=== PATIENT | female | born 1960 | race Asian ===

== ENCOUNTER 2017-12-26 22:44 | Emergency (ER) | payer OTHER ==
[~2017-12-26] VITALS: Ht 152.4 cm; Wt 72.6 kg
[~2017-12-26 22:44] MED LIST: AMLODIPINE BESYLATE PO; ASCO500T18 PO; BENZ1TAB43 PO; BENZTROPINE2 MG PO; DIVA250T2 PO; DIVA500T2 PO; DONE5TAB PO; EASY-LAX100 MG PO; ENSURE PO; FERR325T5 PO; FERROUS SULF325 MG PO; FIBERCON625 MG PO; GERI-MUCIL68 % PO; HALO10TA5 PO; HALO50IN4 IM; HALO5TAB10 PO; MAPAP325 MG PO; MEMANTINE HCL10 MG PO; OLANZAPINE10 M2 PO; OLANZAPINE20 M1 PO; OXCARBAZEPIN300 MG PO; OXYC5TAB53 PO; SEROQUEL300 MG PO; THERA-M PO; TRAZODONE; TRAZODONE300 MG PO; TRILEPTAL300 MG PO; VITAMIN D32000 UNIT PO; WATEINJ6 INJ; ZINC220 MG PO; ZIPR20IN IM; ZIPRASIDONE HCL80 MG PO; ZYPREXA ZYDI10 MG PO; [UNRECOGNIZED DRUG - OTHER] PO
[2017-12-26 23:41] LABS: PLATELET COUNT 105 K/uL (152-353)
[2017-12-26 23:48] LABS: POTASSIUM 4.3 mmol/L (3.6-5.2)
[2017-12-27 00:08] VITALS: BP 182/87; TEMP 98
[2017-12-27] MEDS ORDERED: OLANZAPINE10 M2 PO (04:29)
[2017-12-27] MEDS ORDERED: TRILEPTAL300 MG OR (04:42)
[2017-12-27] MEDS ORDERED: ONDA4TAB3 PO (04:45)
[2017-12-27] MEDS ORDERED: GERI-LANTA PO (04:47)
[2017-12-27] MEDS ORDERED: OXYC5TAB53 PO (04:48)
[2017-12-27] MEDS ORDERED: FERROUS SULF325 M1 PO (04:50)
[2017-12-27] MEDS ORDERED: STOOL SOFTNR100 MG PO (04:54)
[2017-12-27] MEDS ORDERED: MEMANTINE HCL10 MG PO (05:02)
[2017-12-27] MEDS ORDERED: BENZ1TAB43 PO (05:04)
[2017-12-27] MEDS ORDERED: DIVA500T2 PO (05:09)
[2017-12-27] MEDS ORDERED: AMLODIPINE BESYLATE PO (05:11)
[2017-12-27] MEDS ORDERED: FIBER THERAP0.52 GM PO (05:14)
[2017-12-27] MEDS ORDERED: ACID REDUCER150 M1 PO (05:16)
[2017-12-27] MEDS ORDERED: MULTIVITAMI1 PO (05:33)
[2017-12-27] MEDS ORDERED: DONE5TAB PO (05:35)
[2017-12-27] MEDS ORDERED: HALO50IN4 IM (05:41)
[2017-12-27] MEDS ORDERED: HYDROCERIN EX (05:50)
[2017-12-27] MEDS ORDERED: [UNRECOGNIZED DRUG - OTHER] EX (05:55)
[2018-01-02] MEDS ORDERED: ATOR20TA2 PO (10:38)
[2018-01-02] MEDS ORDERED: TRILEPTAL300 MG OR (10:38)
[2018-01-02] MEDS ORDERED: OLANZAPINE10 M2 PO (10:39)
[2018-01-02] MEDS ORDERED: HALO5TAB10 PO (10:39)
[2018-01-02] MEDS ORDERED: HALO50IN4 IM (10:39)
[2018-01-02] MEDS ORDERED: TRAZ50TA36 PO (10:39)
[2018-01-02] MEDS ORDERED: QUET100T2 PO (10:39)
[2018-02-05] MEDS ORDERED: GERI-LANTA PO (04:37)
[2018-02-05] MEDS ORDERED: MILK OF MAGNESIA SUS PO (04:39)
[2018-02-13] MEDS ORDERED: DIVALPROEX500 MG PO (11:39)
[2018-02-13] MEDS ORDERED: DIVA500T2 PO (11:39)
[2018-02-13] MEDS ORDERED: SYMMETREL 100MG CAP PO (11:39)
[2018-02-13] MEDS ORDERED: QUET300T PO (11:39)
[2018-05-21] MEDS ORDERED: HALO50IN4 IM (09:45)
[2018-05-27] MEDS ORDERED: OLANZAPINE10 MG PO (10:10)
[2018-05-27] MEDS ORDERED: MAGICMOUTH PO (10:10)
[2018-05-27] MEDS ORDERED: MEGE40TA32 PO (10:10)
[2018-05-27] MEDS ORDERED: MEMA10TA2 PO (10:10)
[2018-05-27] MEDS ORDERED: AMANTADINE100 MG PO (10:10)
[2018-05-27] MEDS ORDERED: GERI-LANTA PO (10:12)
[2018-05-27] MEDS ORDERED: AMLODIPINE BESYLATE PO (10:13)
[2018-05-27] MEDS ORDERED: DONE5TAB PO (10:14)
[2018-05-27] MEDS ORDERED: STOOL SOFTNR100 MG PO (10:14)
[2018-05-27] MEDS ORDERED: MEMANTINE HCL10 MG PO (10:15)
[2018-05-27] MEDS ORDERED: HALO50IN4 IM (10:15)
[2018-06-04] MEDS ORDERED: QUET300T PO (00:47)
[2018-06-04] MEDS ORDERED: TRAZODONE HYDRO50 MG PO (00:48)
[2018-06-04] MEDS ORDERED: OXYC5TAB53 PO (00:49)
[2018-06-04] MEDS ORDERED: TRILEPTAL300 MG PO (00:50)
[2018-06-09] MEDS ORDERED: HALO50IN4 IM (21:38)
[2018-06-09] MEDS ORDERED: DICL1GEL2 TOP (21:39)
[2018-06-09] MEDS ORDERED: ZIPR20CA PO (21:40)
[2018-06-09] MEDS ORDERED: PANTOPRAZOLE 40MG TA PO (21:40)
== END 2017-12-27 00:08 | disposition other institution (70) ==
LOC: ED 22:44
PROVIDERS: Emergency Medicine
DX: Z04.6 Encounter for general psychiatric examination, requested by authority (principal); F28 Other psychotic disorder not due to a substance or known physiological condition
CPT/HCPCS: 36415; 80053; 80329; 81000; 85027; 93005; 99285

== ENCOUNTER 2018-04-27 16:00 | Emergency (ER) | payer OTHER ==
[~2018-04-27] VITALS: Ht 162.6 cm; Wt 74.4 kg
[~2018-04-27 16:00] MED LIST changes: +ACID REDUCER150 M1 PO; +ATOR20TA2 PO; +DIVALPROEX500 MG PO; +FERROUS SULF325 M1 PO; +FIBER THERAP0.52 GM PO; +GERI-LANTA PO; +HYDROCERIN EX; +MILK OF MAGNESIA SUS PO; +MULTIVITAMI1 PO; +ONDA4TAB3 PO; +QUET100T2 PO; +QUET300T PO; +STOOL SOFTNR100 MG PO; +SYMMETREL 100MG CAP PO; +TRAZ50TA36 PO; +TRILEPTAL300 MG OR; +[UNRECOGNIZED DRUG - OTHER] EX
[2018-04-27 16:10] VITALS: TEMP 97.2
[2018-04-27 16:29] LABS: PLATELET COUNT 56 K/uL (152-353)
[2018-04-27 16:44] LABS: POTASSIUM 4.3 mmol/L (3.6-5.2)
[2018-04-27 18:05] VITALS: BP 120/78
[2018-04-27] MEDS ORDERED: AMANTADINE100 M1 PO (22:51)
[2018-04-27] MEDS ORDERED: TRILEPTAL300 MG PO (22:53)
== END 2018-04-27 18:20 | disposition other institution (70) ==
LOC: ED 16:00
PROVIDERS: Family Medicine
DX: F25.8 Other schizoaffective disorders (principal); R46.89 Other symptoms and signs involving appearance and behavior; Z04.6 Encounter for general psychiatric examination, requested by authority
CPT/HCPCS: 80053; 81000; 85027; 93005; 99285

== ENCOUNTER 2018-05-08 10:15 | Inpatient (IN) | payer OTHER ==
[2018-05-08] VITALS (25 sets, daily range): BP systolic 80–114; BP diastolic 44–95; TEMP 97–98.9; Ht 152.4 cm; Wt 67.2 kg
[~2018-05-08] VITALS: Ht 152.4 cm; Wt 67.2 kg
[~2018-05-08 10:15] MED LIST changes: +AMANTADINE100 M1 PO
--- NOTE | 2018-05-08 10:15 | NUR ---
ADMITTED TO ICU 58 YEAR OLD FEMALE ADMITTED TO DR ERICKSON SERVICES DX PNEUMONIA. R/O BOWEL OBST. PT VERY DROWSEY, NOT TALKING, MOANS WHEN MOVED. NO RESPONSE TO VERBAL STIMULI. PT UP IN BED. CHECKED NG LEAKING. CHECKED PLACEMENT TO LOW WALL SUCTION. RETURN DARK DRAINAGE FOUL SMELL. HOB UP. RECIEVED REPORT FROM [facility]. SENT ORDERS TO ADMISSION TO GET PT IN SYSTEM. KIANA GAMBOA PERSONNEL SCHEDULER HERE.
--- NOTE | 2018-05-08 11:00 | NUR ---
PT ON MONITOR NOTED ST HR 130 RECIEVED LABS LOW BLOOD SUGAR REPEAT FINGER STICK BLOOD SUGAR 40. RECIEVED ORDERS. CHECKED IV NO GOOD WILL NOT FLUSH. ATTEMPT TO RESTART IV UNSUCCESSFUL. ELIAS VAZQUEZ HERE STARTED 18 GA RIGHT EJ X 1 STICK , PRIOR ATTEMPT BY KIANA HALLP UNSUCCESSFUL. IF FLUID STARTED.
--- NOTE | 2018-05-08 11:15 | NUR ---
CHANGED IV FLUIDS TO 1/2 NS ELEVATED SODIUM LEVEL. PT RECIEVED 2 AMPS D50 BY CARRIER DONAVON RN ORDERED. DR ERICKSON HERE AT BEDSIDE. WILL BOLUS 1 LITER OF FLUID ORDERED. NG TO SUCTION OFF. PT TO GO FOR CT SCAN ABD WITH ORAL CONTRAST.
--- NOTE | 2018-05-08 12:00 | NUR ---
HOB UP PT RECIEVED BOLUS ORDERED STARTED ON IV ANTIBOTICS ORDERED. RECIEVED ORAL X RAY CONTRAST VIA NG PER MARILOU FLORES RN. PT KATHLEEN WELL. PT SHAKING AT TIME HR SLOWLY COMING DOWN. MOANING. AT TIMES. CHECKED BLOOD SUHAR X 2 315 AND 304 WILL CONTINUE TO MONITOR.
[2018-05-08 12:52] LABS: POTASSIUM 3.3 mmol/L (3.6-5.2)
--- NOTE | 2018-05-08 13:40 | NUR ---
LAB HERE REDRAW BLOOD RECIEVED DIFFERENT RESULTS WITH H&H. LAB REPEAT. LEE TO GO TO X RAY AT [address] ABD.
--- NOTE | 2018-05-08 14:15 | NUR ---
PATIENT TO CT VIA BED WITH O2 AND MONITOR.
--- NOTE | 2018-05-08 14:35 | NUR ---
PATIENT BACK TO ROOM ASSISTED. IV FLUIDS RESUME. ON MONITOR PT MOVING ABOUT A LITTLE MORE TRYING TO ROUSE UP SIT UP. GARBLED SPEECH. A LITTLE RESTLESS. ASSISTED WITH POSITION CHANGE.
[2018-05-08 14:53] LABS: PLATELET COUNT 107 K/uL (152-353)
--- NOTE | 2018-05-08 15:15 | NUR ---
DR BA HERE CHECKED CT RESULTS. NO SURGERY NEEDED. PT HAS CONSTIPATION. INSERTED TRIPLE LUMEN LINE LEFT CHEST WALL X1 STICK. GOOD BLOOD RETURN. NG BACK TO INTERMITTENT SUCTION DRAINING SMALL AMOUT DARK EMESIS. ORDERED CHEST X RAY.
--- NOTE | 2018-05-08 16:30 | NUR ---
ON PHONE WITH DR BA, RECIEVED OK TO USE CENTRAL LINE. PATIENT HAS BEEN RESTING QUIETLY. RECIEVED BREATHING TX HOB UP SAT 100% RESP RATE 27 CO2 MONITOR 27 LOW PT MOUTH BREATHING.
--- NOTE | 2018-05-08 16:50 | NUR ---
CHECKED BLOOD SUGAR [address] ERICKSON, REP[ORT PATIENT PROGRESS AND BLOOD SUGAR. RECIEVED NEW ORDERS.
--- NOTE | 2018-05-08 17:38 | NUR ---
RECIEVED MEDS ORDERED. CHANGED IV FLUIDS TO D51/2 NS AT 100 ML HR. WILL CONTINUE TO MONITOR. PT BEGAN COUGHING NON PRODUCTIVE HOB UP SAT 98%.
--- NOTE | 2018-05-08 18:26 | NUR ---
CHECKED BLOOD SUGAR 115. IV FLUIDS INFUSING WITHOUT DIFFICULTY. PT REPOSITIONED. FALLS INTO DEEP SLEEP. RESP RATE DROPS DOWN TO AROUND 12. CONTINUES TO SAT 99-100% WITH 3 L NC. APPLIED SCD'S TO LOWER EXT. FEET UP ON PILLOW HEELS OFF BED. NOTED BILAT STAGE 1 DECUB TO HEELS QUARTER SIZE.
--- NOTE | 2018-05-08 23:32 | NUR ---
SOAP SUDS ENEMA WAS ADMINISTERED. PT IS POSTIONED ON HER LEFT SIDE.
[2018-05-09] VITALS (25 sets, daily range): BP systolic 97–188; BP diastolic 47–93; TEMP 97.2–99.8
--- NOTE | 2018-05-09 00:37 | NUR ---
MINIMAL RESULTS FROM SSE. PT MORE ALERT AND TALKING TO STAFF. LINENS WERE CHANGED AND PT WAS PADDED WITH RJ NAPIER. POSITIONED PT ON HER LEFT SIDE. NG INTACT WITH GREEN LIQUID EMESIS DRAINING INTO SUCTION CONTAINER. HR IS 108. O2 SAT IS 99. SR UP.
--- NOTE | 2018-05-09 05:09 | NUR ---
PT RECEIVED RESP TREATMENT. LUNGS AUSCULTATED.
[2018-05-09 05:41] LABS: PLATELET COUNT 110 K/uL (152-353)
--- NOTE | 2018-05-09 05:49 | NUR ---
BLOOD WAS DRAWN AND SENT TO LAB.
--- NOTE | 2018-05-09 08:15 | NUR ---
DR GUTIERREZ AND AMELIA OLEA,TABLE WORKER IN TO SEE PT, NEW ORDERS WRITTEN AND CARRIED OUT
--- NOTE | 2018-05-09 10:03 | NUR ---
TURNED OFF SUCTION AND DISCONNECTED TO GIVE MEDICATION, WILL RESUME IN 30 MIN IF NO RESIDUAL, PT IN NAD AT THIS TIME
--- NOTE | 2018-05-09 11:00 | NUR ---
SMALL AMOUNT OF SPUTUM OBTAINED AFTER ENCOURAGING PT TO TAKE A DEEP BREATH AND COUGH. SPUTUM THICK AND LIGHT GREEN COLOR
--- NOTE | 2018-05-09 14:00 | NUR ---
SOAP SUDS ENEMA GIVEN PER RECTUM, SMALL AMOUNT OF SOLID STOOL OBTAINED, DIGITAL FECAL REMOVAL ATTEMPTED, MODERATE AMOUNT OF SOLID BROWN STOOL OBTAINED, PT TOLERATED WELL, NAD NOTED
--- NOTE | 2018-05-09 19:45 | NUR ---
PT AWAKE AND TALKING SOME WITH DEPUTY SHERIFF CHIEF, DENIES ANY PAIN OR PROBLEMS, NO DISTRESS NOTED, RESP RATE NONLABORED, O2 AT 2LPM VIA NC WITH SAT OF 99-100%, 16F SCHNEIDER PATENT DRAINING TO BEDSIDE WITH CLEAR YELLOW URINE NOTED IN BAG, IV LOCK INTACT TO R SIDE OF NECK WITH NO PROBLEMS NOTED TO SITE, TRIPLE LUMEN CENTRAL LINE INTACT TO L UPPER CHEST WITH NO PROBLEMS NOTED TO SITE AND D5 1/2 NS INFUSING AT 100ML/HR, NG TUBE INTACT TO L NARE WITH SOME BROWN DRAINAGE NOTED IN SUCTION TUBING, SCDs IN USE, LUNGS DIMINISHED TO AUSCULTATION, BS + BUT HYPOACTIVE, SKIN WARM AND DRY, RADIAL AND PEDAL PULSES INTACT/EQUAL, SHINGLE WEAVER IN USE WITH SLIGHT TACHYCARDIA NOTED 105, VITALS BEING MONITORED, PERRLA. OFFERED MOUTH CARE BUT PT DOES NOT WANT MOUTH CARE AT TIME TIME. FEET ELEVATED OFF OF BED ON PILLOWS. WILL REPOSITION Q 2 HOURS AND MONITOR FOR SKIN PROBLEMS. WILL MONITOR CLOSELY, RAILS UP X3, BED IN LOW POSITION, ENCOURAGED TO CALL NEEDED, PT ACKNOWLEDGES UNDERSTANDING.
--- NOTE | 2018-05-09 22:30 | NUR ---
NOTE PT COUGHING SOME. SMALL AMOUNT OF THICK, YELLOW SPUTUM NOTED. NO DISTRESS NOTED, WILL MONITOR CLOSELY, RAILS UP, BED IN LOW POSITION.
[2018-05-10] VITALS (24 sets, daily range): BP systolic 114–142; BP diastolic 66–93; TEMP 98.2–100
--- NOTE | 2018-05-10 00:20 | NUR ---
PT RESTING WITH EYES CLOSED, NO S/S OF PAIN OR DISTRESS NOTED, RESP RATE NONLABORED/NORMAL, O2 AT 2LPM VIA NC WITH SAT OF 99-100%, 16F SCHNEIDER PATENT DRAINING TO BEDSIDE, CENTRAL LINE INTACT TO L UPPER CHEST WITH D5 1/2 NS INFUSING AT 100ML/HR WITH NO PROBLEMS NOTED TO SITE, IV LOCK INTACT TO R JUGULAR WITH NO PROBLEMS NOTED TO SITE, SCDs IN USE, VITALS BEING MONITORED AND ARE STABLE, PSYCHIATRIC SOCIAL WORKER SUPERVISOR IN USE WITH SLIGHT TACHYCARDIA NOTED AT 101, PT REPOSITIONED AND FEET ELEVATED ON PILLOW, NG TUBE INTACT TO L NARE HOOKED TO LOW INTERMITTEN SUCTION WITH BROWN TO LIGHT BROWNISH COLORED LIQUID NOTED IN SUCTION TUBING. MOUTH CARE PROVIDED. PT DENIES ANY PAIN OR NEEDS. WILL MONITOR CLOSELY, RAILS UP X3, BED IN LOW POSITION, ENCOURAGED TO CALL NEEDED.
--- NOTE | 2018-05-10 02:02 | NUR ---
PT AWAKE WANTING SOMETHING TO DRINK, REMINDED PT THAT SHE COULD NOT HAVE ANYTHING BY MOUTH AND EXPLAINED WHY. PT ACKNOWLEDGES UNDERSTANDING. MOUTH CARE PROVIDED FOR COMFORT, CENTRAL LINE INTACT WITH FLUID ONGOING, RESP RATE NONLABORED, O2 AT 2LPM VIA NC, SCHNEIDER PATENT DRAINING TO BEDSIDE, NG TUBE INTACT TO L NARE, SCDs IN USE, VITALS BEING MONITORED, IV LOCK INTACT. REPOSITIONED PT TO RIGHT SIDE, FEET ELEVATED ON PILLOW, HOB REMAINS ELEVATED, WILL MONITOR CLOSELY, RAILS UP X3, BED IN LOW POSITION.
--- NOTE | 2018-05-10 04:00 | NUR ---
PT FOUND RESTING IN BED WITH EYES CLOSED, NO S/S OF PAIN OR DISTRESS NOTED, RESP RATE 18 NONLABORED, O2 AT 2LPM VIA NC WITH SAT OF 99-100%, SCHNEIDER PATENT DRAINING TO BEDSIDE, NG TUBE INTACT TO L NARE WITH APPROX 50-100ML OF BROWN LIQUID NOTED IN SUCTION CANISTER, IV LOCK INTACT TO R SIDE OF NECK, CENTRAL LINE INTACT TO L UPPER CHEST WITH NO PROBLEMS NOTED TO SITE AND D5 1/2 NS INFUSING AT 100ML/HR, SCDs IN USE, VITALS BEING MONITORED AND ARE STABLE, REPOSITIONED PT TO HER BACK WITH HOB ELEVATED, AROUSES BRIEFLY AND DENIES ANY PROBLEMS, WILL MONITOR CLOSELY, RAILS UP X3, BED IN LOW POSITION.
[2018-05-10 05:57] LABS: PLATELET COUNT 75 K/uL (152-353)
[2018-05-10 06:32] LABS: POTASSIUM 3.7 mmol/L (3.6-5.2)
--- NOTE | 2018-05-10 08:30 | NUR ---
DR ISMAEL SUAZO IN TO SEE PT. NEW ORDERS. PT REMOVED FROM BEDPAN,SM SMEAR OF BM. PERICARE.
--- NOTE | 2018-05-10 09:00 | NUR ---
PT BACK ON BEDPAN AT HER REQUEST. PT STATES 'LEANA GOT TO GO.'
--- NOTE | 2018-05-10 10:00 | NUR ---
BATH & PERSONAL CARE.PT ASSISTED TO TURN WITH ASSIST. LINEN CHANGE. WHEN PT ROLLED AFTER PERICARE & HEAD DOWN, PT MOTIONED 'TO SPIT', SPIT UP SMALL AMT GREENISH BOLE COLORED STOMACH CONTENTS. PT CONNECTED BACK TO LIS.PT ASSISTED WITH MOUTHCARE,HOB UP,FEET UP ON PILLOWS,HEEL PROTECTORS APPLIED.
--- NOTE | 2018-05-10 12:40 | NUR ---
SPUTUM C& S REPORT TO DR SUAZO,NEW ORDERS. OCCULT BLOOD STOOL POSITIVE REPORTED TO DR SUAZO.
--- NOTE | 2018-05-10 14:00 | NUR ---
PT WITH LARGE SOFT FORMED BM,PERICARE.
--- NOTE | 2018-05-10 16:00 | NUR ---
PT RESTING WITH EYES CLOSED. PT WITH HEEL PROTECTORS OFF,ASSISTED PT TO TURN & REAPPLIED HEEL PROTECTORS.
--- NOTE | 2018-05-10 18:52 | NUR ---
PT COUGHED UP A THICK CHUNK OF YELLOW PHLEGM. ASSISTED PT TO GET IT UP & BATH HER HANDS & FACE.
--- NOTE | 2018-05-10 19:00 | NUR ---
DR KIM IN TO SEE PT. NEW ORDERS.
--- NOTE | 2018-05-10 21:30 | NUR ---
NG TUBE IN L NARE ACCIDENTLY DISLODGED BY PT AT THIS TIME, WHOLE TUBE INTACT. NO ACUTE DISTRESS NOTED, NO N/V NOTED, PT CLEANED UP DUE TO SOFT MEDIUM BM, CATH CARE PROVIDED, PT REPOSITIONED TO R SIDE, FEET ELEVATED ON PILLOW AND HEEL PROTECTORS IN USE, SCDs IN USE, CENTRAL LINE INTACT TO L UPPER CHEST WITH D5 1/2 NS INFUSING AT 100ML/HR, O2 AT 2LPM VIA NC, RESP RATE NORMAL AND NONLABORED, 16F SCHNEIDER PATENT DRAINING TO BEDSIDE, IV LOCK INTACT TO R SIDE OF NECK, VITALS BEING MONITORED, MD PHYSICIAN DERMATOLOGIST IN USE WITH RATE IN 90s. WILL MONITOR CLOSELY, RAILS UP X3, BED IN LOW POSITION. HOB REMAINS ELEVATED, PT TALKATIVE WITH DESIZING MACHINE OPERATOR HEAD END, DENIES ANY PAIN OR PROBLEMS.
--- NOTE | 2018-05-10 23:00 | NUR ---
MOUTH CARE COMPLETED, FACE WASHED WITH WET CLOTH. PT EDUCATED ABOUT NG TUBE INSERTION APPROX 30-45 MINUTES AGO, ACKNOWLEDGED UNDERSTANDING.
--- NOTE | 2018-05-10 23:18 | NUR ---
ATM MECHANIC ATTEMPTED TO PLACE 14F NG TUBE DOWN L NARE WITH NO SUCCESS, TUBE CURLING UP IN PT'S MOUTH. PT TOLERATED WITH NO DISTRESS AFTERWARDS. WILL ATTEMPTED TO PLACE SMALLER NG TUBE DOWN OTHER NARE.
--- NOTE | 2018-05-10 23:40 | NUR ---
PT PLACED ON BEDPAN WITH ASSITANCE OF MONKEY KEEPER, NOTE PT HAD SOFT MEDIUM SIZED BM. IV LOCK INTACT TO R JUGULAR/NECK, CENTRAL LINE INTACT TO L UPPER CHEST WITH D5 1/2 NS AT 100ML/HR, SCHNEIDER PATENT DRAINING TO BEDSIDE, SCDs IN USE, HEEL PROTECTORS IN USE, VITALS BEING MONITORED AND STABLE, REGULATORY AUDITOR IN USE, RESP RATE NORMAL/NONLABORED. WILL MONITOR CLOSELY, RAILS UP X3, BED IN LOW POSITION.
[2018-05-11] VITALS (23 sets, daily range): BP systolic 107–143; BP diastolic 67–91; TEMP 97.6–98.8
--- NOTE | 2018-05-11 00:08 | NUR ---
12F NG TUBE INSERTED INTO R NARE BY PAID SEARCH MARKETING ANALYST WHILE PT SIPPING WATER, NO ACUTE DISTRESS NOTED, PLACEMENT CHECKED AND PAID SEARCH MARKETING ANALYST AUSCULTATED BUBBLING OVER STOMACH WHEN AIR PUSHED INTO NG TUBE. SECURED TO NOSE AND TO PT'S FACE WITH TAPE, TAPE AND TUBE MARKED TO MONITOR PLACEMENT(WATCH FOR TUBE SLIPPING THROUGH TAPE). STAT CHEST X-RAY ORDERED TO CONFIRM PLACEMENT. VITALS REMAIN STABLE, PT DENIES ANY PROBLEMS AT THIS TIME.
--- NOTE | 2018-05-11 02:15 | NUR ---
RESTING WITH EYES CLOSED, NO DISTRESS NOTED, VITALS BEING MONITORED, CENTAL LINE INTACT WITH FLUID ONGOING, NG TUBE INTACT TO R NARE, SCHNEIDER PATENT, SCDs AND HEEL PROTECTORS IN USE, CONSTRUCTION ENGINEERING MANAGER IN USE, REPOSITIONED IN BED, WILL MONITOR, RAILS UP X3, BED IN LOW POSITION.
--- NOTE | 2018-05-11 05:50 | NUR ---
RESTING IN BED WITH EYES CLOSED, NO S/S OF PAIN OR DISTRESS NOTED, PT WAS ON BEDPAN TAKEN OFF OF LE AT THIS TIME, NO BM NOTED PT JUST HAD SOME GAS. DENIES ANY NEEDS OR PROBLEMS, NG TUBE INTACT TO R NARE HOOKED TO LOW INTERMITTEN SUCTION WITH GREENISH DRAINAGE NOTED IN TUBING, SCHNEIDER PATENT, CENTRAL LINE INTACT WITH FLUID ONGOING, RESP RATE NONLABORED, O2 IN USE, SCDs AND HEEL PROTECTORS IN USE, REPOSITIONED TO L SIDE, WILL MONITOR CLOSELY, RAILS UP X3, BED IN LOW POSITION.
[2018-05-11 06:43] LABS: POTASSIUM 3.7 mmol/L (3.6-5.2)
[2018-05-11 07:04] LABS: PLATELET COUNT 61 K/uL (152-353)
--- NOTE | 2018-05-11 08:22 | NUR ---
DR Jeimy ALEGRIA IN TO SEE PT. NEW ORDERS.
--- NOTE | 2018-05-11 09:30 | NUR ---
LAB CALLED ABOUT RELEASING 2U PRBC ON HOLD FOR PT. DR Jeimy ALEGRIA NOTIFIED. 'OK TO RELEASE BLOOD 2U PRBC' PER DR ALEGRIA.
--- NOTE | 2018-05-11 10:00 | NUR ---
L CW CL SITE CLEANED & REDRESSED /ASEPTIC TECHNIQUE PER PROTOCOL. NGT CKED FOR PLACEMENT & FLUSED WITH 20ML H20. MEDICATED WITH LACTOLOSE IN NGT. NGT CLAMPED.
--- NOTE | 2018-05-11 11:10 | NUR ---
PT'S NGT RECONNECTED TO SUCTION WITH IMMEDIATE RETURN OF SM AMT OF GREEN STOMACH CONTENTS.
--- NOTE | 2018-05-11 13:09 | NUR ---
PT RESTING WITH EYES CLOSED. JENNIE T6O BSD WITH CL YELLOW URINE. R GRISELDA NGT TO LIS.
--- NOTE | 2018-05-11 15:36 | NUR ---
PT WATCHING TV AFTER SPONGE BATH & MOUTHCARE. DENIES PAIN. TURNED & REPOSITIONED FOR COMFORT. HEEL PROTECTORS REAPPLIED OFTEN D/T PT CROSSES HER FEET & PUSHES AGAINST THEM UNTIL THEY ARE OFF.
--- NOTE | 2018-05-11 17:16 | NUR ---
PT PLACED ON THE BEDPAN'I'VE GOT TO DOO DOO' PER PT.
--- NOTE | 2018-05-11 17:40 | NUR ---
PT WITH MEDIUM SOFT BROWN BM,PERICARE.
--- NOTE | 2018-05-11 21:00 | NUR ---
PT ON ROOM AIR. SPO2 98%.
--- NOTE | 2018-05-11 22:25 | NUR ---
PT RESTING IN BED WITH EYES CLOSED, NO S/S OF PAIN OR DISTRESS NOTED, RESP RATE NONLABORED, ON ROOM AIR, SCHNEIDER PATENT DRAINING TO BEDSIDE, CENTRAL LINE INTACT WITH FLUID ONGOING, SCDs AND HEEL PROTECTORS IN USE, KEEL PRESS OPERATOR IN USE WITH RATE IN THE 90s, IV LOCK INTACT TO R SIDE OF NECK, NG TUBE INTACT DOWN R NARE WITH LOW INTERMITTEN SUCTION PER ORDER, REPOSITIONED TO R, WILL MONITOR CLOSELY, RAILS UP X3, BED IN LOW POSITION.
[2018-05-12] VITALS (23 sets, daily range): BP systolic 97–123; BP diastolic 45–81; TEMP 98–99.2
--- NOTE | 2018-05-12 00:12 | NUR ---
PT AWAKE WITH NO S/S OF PAIN OR DISTRESS NOTED, TALKATIVE WITH WAREHOUSE SHIPPING RECEIVING CLERK. NOTE NG TUBE IS NO LONGER INTACT DOWN R NARE, DISLODGED ACCIDENTLY BY PT, WHOLE NG TUBE NOTED TO BE INTACT UPON EXAMINATION, LESS THAN APPROX 25ML OF GREENISH DRAINAGE FROM NG TUBE NOTED IN LAST 6-7 HOURS, MOUTH CARE PROVIDED AND LIPS MOISTURIZED. RESP RATE NORMAL AND NONLABORED, ON ROOM AIR WITH SAT OF 98%, 16F SCHNEIDER PATENT DRAINING TO BEDSIDE WITH CLEAR LIGHT YELLOW URINE NOTED IN BAG, CENTRAL LINE INTACT TO L UPPER CHEST WITH D5 INFUSING AT 125ML/HR, DEPEND DRY AND PT DENIES HAVING TO HAVE A BM AT THIS TIME, VITALS BEING MONITORED AND ARE STABLE, SCDs IN USE, HEEL PROTECTORS IN USE, IV LOCK INTACT TO R JUGULAR/NECK. PT DENIES ANY PAIN, N/V AT THIS TIME. PT ASSISTED WAREHOUSE SHIPPING RECEIVING CLERK TO MOVE UP IN BED, REPOSITIONED TO L SIDE, HOB ELEVATED, FEET ELEVATED ON PILLOW, WILL MONITOR CLOSELY, RAILS UP X3, BED IN LOW POSITION, ENCOURAGED TO CALL NEEDED.
--- NOTE | 2018-05-12 00:20 | NUR ---
CONTACTED DR. BENJAMIN ABOUT NG TUBE BEING OUT. TELEPHONE ORDER TO LEAVE NG TUBE OUT AT THIS TIME, ZOFRAN 4 MG IVP Q 6 HOURS PRN FOR N/V. T.O. R&V DR. Quan BENJAMIN/TAMMY SKY RN.
--- NOTE | 2018-05-12 02:00 | NUR ---
PT STATES SHE NEEDS TO GO TO THE BATHROOM, NO S/S OF PAIN OR DISTRESS NOTED. PT PLACED ON BEDPAN FOR A WHILE BUT ONLY HAD SOME GAS NO BM. RESP RATE NORMAL AND NONLABORED, ON ROOM AIR WITH SAT OF 99%, CENTRAL LINE INTACT WITH FLUID ONGOING, SCHNEIDER PATENT DRAINING TO BEDSIDE, IV LOCK INTACT TO R SIDE OF NECK, SCDs IN USE, GLUE MOUNTER OPERATOR IN USE, REPOSITIONED TO HER BACK AND PULLED UP IN BED, HEEL PROTECTORS IN USE, PT TALKATIVE WITH STONECUTTER ASSISTANT, WILL MONITOR, RAILS UP X3, BED IN LOW POSITION.
--- NOTE | 2018-05-12 04:30 | NUR ---
HOTEL SUPPLIES SALESPERSON AT BEDSIDE DUE TO PT STATES SHE HAS HAD A BM. DEPEND CHANGED, NOTE PT HAD A MEDIUM FIRM(NOT HARD) FORMED BM(BMs HAVE BEEN BEING VERY SOFT). WASHED PT'S BACK, ARM PITS, AND PRIVATE AREAS, CATH CARE COMPLETED. LOTION APPLIED TO PT'S BACK BY HOTEL SUPPLIES SALESPERSON AND PT APPLIED LOTION TO HER HANDS/ARMS. CENTRAL LINE INTACT WITH D5 INFUSING AT 125ML/HR, ON ROOM AIR, VITALS STABLE, SCHNEIDER PATENT, IV LOCK INTACT TO R SIDE OF NECK, RESP RATE NONLABORED WITH NO PRODUCTIVE COUGH NOTED DURING THE SHIFT, SCDs IN USE, HEEL PROTECTORS IN USE, PT REPOSITIONED AND TURNED TO R SIDE. PT TALKATIVE WITH HOTEL SUPPLIES SALESPERSON, WILL MONITOR, RAILS UP X3, BED IN LOW POSITION.
[2018-05-12 06:11] LABS: PLATELET COUNT 53 K/uL (152-353)
[2018-05-12 06:24] LABS: POTASSIUM 3.4 mmol/L (3.6-5.2)
--- NOTE | 2018-05-12 07:50 | NUR ---
HEAD TO TOE ASSESSMENT COMPLETED AT THIS TIME. PATIENT'S IV LINE DATES CHECKED WELL. PATIENT ALERT AND VERBALIZED NAME.
--- NOTE | 2018-05-12 08:15 | NUR ---
PATIENT RECEIVED A BED BATH AT THIS TIME AND CLEAN LINENS PUT ON BED WELL. MOUTH CARE PERFORMED WITH OINTMENT APPLIED TO LIPS. PATIENT TOLERATED WELL.
--- NOTE | 2018-05-12 08:38 | NUR ---
DOCTOR IN TO SEE PATIENT AT THIS TIME.
--- NOTE | 2018-05-12 08:45 | NUR ---
PATIENT ON BSC HAVING BM AT THIS TIME.
--- NOTE | 2018-05-12 12:20 | NUR ---
PATIENT ASSISTED WITH LUNCH AT THIS TIME. PATIENT STATES THAT GOD TOLD HER THE BROTH WILL HURT HER STOMACH AND SHE NO LONGER WANTS ANYMORE OF THE BROTH. PATIENT ATE APPROXIMATELY 10 % OF BROTH.
--- NOTE | 2018-05-12 13:17 | NUR ---
PATIENT LAYING IN BED WATCHING TV AT THIS TIME. NAD NOTED.
--- NOTE | 2018-05-12 14:35 | NUR ---
PATIENT ONLY ABLE TO TAKE HALF OF 1 POTASSIUM TABLET AND HALF OF LACTULOSE. PATIENT STATES SHE DOES NOT WANT IT. PATIENT STATES HER STOMACH HURTS AND SHE HAS A TOOTH ACHE. PATIENT LIKEWISE STATES ELIZABETH WANTS IT AND SHE WANTS ME TO GIVE HER MEDICATIONS TO ELIZABETH. PATIENT REFUSES TO TAKE ANYMORE MEDICATIONS AT THIS TIME.
--- NOTE | 2018-05-12 15:11 | NUR ---
RT IN FOR BREATHING TX AT THIS TIME.
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
--- NOTE | 2018-05-12 18:07 | NUR ---
PATIENT REFUSES TO EAT. PATIENT STATES "JUNG SAYS THAT I DONT HAVE TO EAT THIS IF I DONT WANT THIS. JUNG SAYS THAT I CAN HAVE WHAT I WANT AND I WANT HAMHOCKS AND PIGTAILS. I WANT LEMONADE TOO". PATIENT IS REFUSING TO EAT AND WILL NOT DRINK ANYTHING. 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 PATIENT IS ALSO REFUSING TO TAKE HER PO MEDS. DR. Leggett NOTIFIED OF PATIENT'S DEMEANOR. PATIENT'S DISPOSITION MAY BE RECONSIDERED IN THE MORNING.
--- NOTE | 2018-05-12 19:19 | NUR ---
PT ON ROOM AIR. SPO2 96%
--- NOTE | 2018-05-12 22:25 | NUR ---
PT HAS MENTIONED SEVERAL TIMES TO SCHOOL ADMISSIONS REPRESENTATIVE THAT SHE WANTS SOMETHING TO EAT. REMINDED PT THAT SHE DID NOT LIKE HER SUPPER TRAY AND OFFERED PT A SNACK OF SOUP JELLO CEREAL PUDDING BROTH OR A SANDWICH, PT STATES SHE DOES NOT WANT ANY OF THOSE THINGS SHE WANTS GREENS AND CHICKEN HER MOM HAS COOKED. BROUGHT PT A BBQ SANDWICH THAT WAS GIVEN TO STAFF FOR THE HOLIDAYS. PT STATES SHE WILL EAT SOME OF THE PORK BUT DOES NOT EAT MUCH BREAD. PT TOLERATED WHOLE SMALL SERVING OF MEAT OFF OF SANDWICH AND DRANK A FEW SIPS OF WATER. PT DENIES ANY N/V OR PAIN/PROBLEMS. STATES THE FOOD WAS GOOD. WILL MONITOR CLOSELY, RAILS UP, BED IN LOW POSITION.
[2018-05-13] VITALS (24 sets, daily range): BP systolic 97–1104; BP diastolic 47–73; TEMP 98.2–99.5
--- NOTE | 2018-05-13 00:18 | NUR ---
PT AWAKE SITTING UP IN BED WATCHING TV WITH NO S/S OF PAIN OR DISTRESS NOTED, PT DENIES ANY NEEDS AT THIS TIME, CENTRA LINE INTACT WITH FLUID ONGOING, RESP RATE NONLABORED ON ROOM AIR, SCDs IN USE, HEEL PROTECTORS IN USE, CHRISTIAN SCIENCE HEALER SHOWS RATE FROM 100-108, O2 SAT 100% ON ROOM AIR, SCHNEIDER PATENT, REPOSITIONED PT TO R SIDE. PT NOW TALKATIVE WITH CORE COMPOSER FEEDER, TELLING CORE COMPOSER FEEDER THAT "ELIZABETH" WAS MAKING HER LAUGH(LAUGHING OUT LOUDLY), WHEN ASKED WHO ELIZABETH WAS PT SAID HER BROTHER SHE KEPT LOOKING TO THE R SIDE OF THE BED IF SOMEONE WAS STANDING THERE, LOOKING TO R SIDE OF BED TALKING AND LAUGHING AT SOMEONE WHO DOES NOT EXIST. REORIENTED PT. WILL MONITOR CLOSELY, RAILS UP X3, BED IN LOW POSITION, ENCOURAGED TO CALL NEEDED.
--- NOTE | 2018-05-13 02:02 | NUR ---
PT RESTING IN BED WITH EYES CLOSED, NO S/S OF PAIN OR DISTRESS NOTED, CENTRAL LINE INTACT TO L UPPER CHEST WITH D5 INFUSING AT 125ML/HR, ON ROOM AIR WITH SAT OF 97%, RESP RATE 23 NONLABORED, 16F SCHNEIDER PATENT DRAINING TO BEDSIDE, SCDs IN USE, HEEL PROTECTORS IN USE, WINDOWS PHONE DEVELOPER IN USE WITH RATE OF 100-110, VITALS BEING MONITORED Q 1 HOUR. AROUSES BRIEFLY WHILE PRODUCT GRADER REPOSITIONS PT T0 HER BACK, PT GETTING STRONGER AND COULD PUSH HERSELF UP IN BED SOME WITH HER FEET. PT WANTS SOMETHING TO EAT, STATES THAT HER MAMA SAID IT WAS TIME TO EAT AND THAT PRODUCT GRADER WAS GOING TO EAT WITH HER. EXPLAINED TO PT THAT THE [facility] IS NO LONGER DUE TO IT BEING 0200 IN THE MORNING, OFFERED PT SOUP JELLO BROTH AND JUICE PT STATES "I AIN'T EATING NO SOUP" SHE FROWNS. REASSURED PT. WILL MONITOR CLOSELY, RAILS UP X3, BED IN LOW POSITION, ENCOURAGED TO CALL NEEDED.
--- NOTE | 2018-05-13 04:15 | NUR ---
RESTING IN BED WITH EYES CLOSED, NO S/S OF PAIN OR DISTRESS NOTED, WILL MONITOR CLOSELY, RAILS UP X3, BED IN LOW POSITION.
[2018-05-13 05:56] LABS: PLATELET COUNT 46 K/uL (152-353)
--- NOTE | 2018-05-13 06:20 | NUR ---
PT AWAKE WATCHING TV WITH NO DISTRESS NOTED, CENTRAL LINE INTACT, ON ROOM AIR, SCHNEIDER PATENT, VITALS STABLE, DENIES ANY NEEDS, RAILS UP X3, BED IN LOW POSITION, ENCOURAGED TO CALL NEEDED.
[2018-05-13 06:25] LABS: POTASSIUM 3.5 mmol/L (3.6-5.2)
--- NOTE | 2018-05-13 07:15 | NUR ---
PT RESTING WITH EYEAS CLOSED.NO C/O.
--- NOTE | 2018-05-13 07:45 | NUR ---
DR Leggett IN ER NOTIFIED PER TAMMY SKY RN THAT ALL LABS & EXRAYS ARE DONE.
--- NOTE | 2018-05-13 08:30 | NUR ---
PT REFUSED TO EAT. YAHAIRA BHAGAT
--- NOTE | 2018-05-13 10:12 | NUR ---
PT RESTING WITH EYES CLOSED. NO C/O.
--- NOTE | 2018-05-13 10:25 | NUR ---
LABS DRAWN & TO LAB. PT ASSISTED TO TURN SELF IN BED.
--- NOTE | 2018-05-13 11:06 | NUR ---
PT'S SPEECH RAMBLING TALKING ABOUT'YOU MY MAMA,I KNOW YOU ARE MY MAMA.'.PT TALKING TO PEOPLE ONLY SEEN BY HER. PLEASANT AT THIS TIME.
--- NOTE | 2018-05-13 12:03 | NUR ---
DR YOLANDA LEIGH IN TO SEE PT.NEW ORDERS.
--- NOTE | 2018-05-13 13:14 | NUR ---
PT ATE A BOWL OF GRAPES, REFUSED TO EAT OTHER ITEMS ON HER TRAY. PT STES'I DON'T EAT FOOD LIKE THAT & I DRINK SODAS.' YADI IN DIETARY NOTIFIED.
--- NOTE | 2018-05-13 14:13 | NUR ---
PT NOTED TO HAVE PULLED OFF THE DRESSING TEGADERM FROM HER TLC SITE. SITE CARE PER PROTOCOL.
--- NOTE | 2018-05-13 15:30 | NUR ---
PT STATES'I'VE GOT TO DOO DOO'.PT ASSISTED UP TO BSC,SM SOFT FORMED BM. ASSISTED WITH PERICARE.
--- NOTE | 2018-05-13 18:00 | NUR ---
PT SITTING UP IN BED FEEDING SELF SUPPER.
[2018-05-14] VITALS (10 sets, daily range): BP systolic 96–148; BP diastolic 50–84; TEMP 97.5–98.2
[2018-05-14 06:55] LABS: POTASSIUM 3.5 mmol/L (3.6-5.2)
[2018-05-14 08:08] LABS: PLATELET COUNT 51 K/uL (152-353)
--- NOTE | 2018-05-14 08:11 | NUR ---
PATIENT RESTING IN BED AWAKE ALERT TALKING NOTED SOME CONFUSION. AM CARE DONE READY FOR BREAKFAST. DR GUTIERREZ VISITED RECIEVED NEW ORDERS FOR KUB WAITING FOR AM LABS.
--- NOTE | 2018-05-14 08:39 | NUR ---
PATIENT BACK FROM X RAY DEPT KATHLEEN WELL ASSISTED UP ON BED RESP DEPT HERE PT RECIEVED BREATHING TX WILL SET UP FOR BREAKFAST. NO COMPLAINTS VERY PLESANT THIS AM.
--- NOTE | 2018-05-14 09:06 | NUR ---
PT ASSSITED WITH BREAKFAST REFUSED, OFFERED TO GET HER SOMETHING ELSE, STATED THAT SHE WOULD EAT FRUIT. FRUIT CUP BROUGHT TO ROOM PATIENT REFUSED. DID NOT WANT TO EAT. MEDS SCANNED READY TO GIVE PT STATED AT FIRST THAT SHE WOULD TAKE THEM PT REFUSED MEDS STATED THAT " THEY ARE POSION" REFUSED MEDS. ATTEMPT TO REORIENT PT TO HOSPITAL.
--- NOTE | 2018-05-14 09:45 | NUR ---
REPORT LABS AND X RAY FROM THIS AM TO DR GUTIERREZ RECIEVED ORDERS PT TO GO BACK TO [facility] TODAY.
--- NOTE | 2018-05-14 10:00 | NUR ---
EXPLAINED PROCEDURE TO PATIENT PT CALM TALKING COOPERATIVE, REMOVED SUCTURES [id number] CENTRAL LINE IN PLACE, LINE PULLED, HELD PRESSURE FOR 5 MIN. NO BLEEDING. PT KATHLEEN WELL NO SHORTNESS OF BREATH, VITAL SIGNS REMAIN STABLE. APPLIED DRESSING.
--- NOTE | 2018-05-14 10:30 | NUR ---
CALLED REPORT TO [facility]AMMY NURSE WORKING AT [facility]. PT MOVED TO W/C DISCHARGED FROM ICU MOVED TO [facility]. PT APPEARS GLAD TO BE THERE TALKING, ACTING APPROPIATE. CHECKED DRESSING AT CENTRAL LINE DRY CLEAN INTACT NO BLEEDING. PT DISCHARGED FROM ICU.
[2018-05-14] MEDS ORDERED: LACTSYP31 PO (11:20)
[2018-05-14] MEDS ORDERED: TYLENOL325 MG PO (11:21)
[2018-05-14] MEDS ORDERED: MAGNSUS68 PO (11:22)
[2018-05-14] MEDS ORDERED: ZIPR20IN IM (11:22)
[2018-05-14] MEDS ORDERED: ONDA2INJ2 IV (11:23)
[2018-05-14] MEDS ORDERED: PANT40IN IV (11:24)
[2018-05-14] MEDS ORDERED: TROCHIBASE PO (11:25)
== END 2018-05-14 10:30 | disposition other institution (70) | DRG 388 ==
LOC: ICU 10:15
PROVIDERS: ADMIT Emergency Medicine
PROC: 05H633Z Insertion of Infusion Device into Left Subclavian Vein, Percutaneous Approach (ICD-10-PCS; principal; 2018-05-08)
PROC: 0D9670Z Drainage of Stomach with Drainage Device, Via Natural or Artificial Opening (ICD-10-PCS; 2018-05-08)
DX: K56.609 Unspecified intestinal obstruction, unspecified as to partial versus complete obstruction (principal); J18.8 Other pneumonia, unspecified organism; N18.4 Chronic kidney disease, stage 4 (severe); N28.9 Disorder of kidney and ureter, unspecified; K56.41 Fecal impaction
CPT/HCPCS: 80053; 80202; 82272; 85007; 85014; 85018; 85027; 86850; 86900; 86901; 86922; 93005; 94640; 94664; 94760; C1768; J0515; J0696; J1956; J2060; J2405; J3370; J3490; J7060; P9016